=== PATIENT | male | born 1975 | race African-American/Black ===

== ENCOUNTER 2017-06-18 14:24 | Inpatient (IN) | payer OTHER ==
[~2017-06-18] VITALS: Ht 188 cm; Wt 105.9 kg
[2017-06-18] MEDS ORDERED: IV NORMAL SALINE 1000ML BAG 1,000 ML IV ONE (14:30)
[2017-06-18] MEDS ORDERED: IOHEXOL 300 MG/ML 75 ML VIAL IV ONE (14:30)
[2017-06-18] MEDS ORDERED: MORPHINE SULFATE 10 MG/ML VIAL. IV ONE ×2 (14:30→18:00)
[2017-06-18] MEDS ORDERED: ONDANSETRON PF 4 MG/2 ML VIAL. IV ONE (14:30)
[2017-06-18] MEDS ORDERED: LIDO:MAALOX:DONNATAL 1:1:1 15 ML SINGLE DOSE SWSW ONE (14:45)
[2017-06-18 15:14] LABS: BASO # 0.1 x10^3/uL (0.0-0.2); BASO % 1 % (0-3); EOS % 1 % (0-3); HEMATOCRIT 43.3 % (39.0-53.0); HEMOGLOBIN 14.8 g/dL (13.0-17.5); LYMPH # 1.6 x10^3/uL (1.0-4.8); LYMPH % 16 % (24-48); MEAN CORPUSCULAR HEMOGLOBIN 34 pg (25-35); MEAN CORPUSCULAR HGB CONC 34 g/dL (31-37); MEAN CORPUSCULAR VOLUME 99 fL (79-100); MONO % 5 % (0-9); NEUT % 77 % (31-73); PLATELET COUNT 248 x10^3/uL (140-400); RED CELL DISTRIBUTION WIDTH 13.7 % (11.5-14.5); WHITE BLOOD COUNT 10.2 x10^3/uL (4.0-11.0)
[2017-06-18 15:23] LABS: INR 1.2 (0.8-1.1); PROTHROMBIN TIME PATIENT 14.3 SEC (11.7-14.0)
--- NOTE | 2017-06-18 15:27 | PHYS DOC ---
Past Medical History Past Medical History: No Pertinent History Past Surgical History: No Surgical History Additional Information: 1 PPD Alcohol Use: Heavy Additional Information: DRINKS 2 TO 3 DRINKS A NIGHT Drug Use: Marijuana Adult General Chief Complaint Chief Complaint: ABDOMINAL PAIN HPI HPI Patient is a 41 year old male presenting to the emergency department for evaluation of 3 days worth of abdominal pain. The gastric and right upper quadrant and rates towards his right flank and associated with nonbloody nonbilious emesis. He denies any fevers but says that he has chills. No dysuria hematuria prior abdominal surgeries diarrhea or constipation. Patient says that he smokes cigarettes daily and drinks alcohol daily but denies using any drugs. He has not been taking anything for pain. He is uncomfortable appearing but nontoxic. Review of Systems Review of Systems Constitutional: Denies fever or chills [] Eyes: Denies change in visual acuity, redness, or eye pain [] HENT: Denies nasal congestion or sore throat [] Respiratory: Denies cough or shortness of breath [] Cardiovascular: No additional information not addressed in HPI [] GI: + abdominal pain, nausea, vomiting. No bloody stools or diarrhea [] : Denies dysuria or hematuria [] Musculoskeletal: Denies back pain or joint pain [] Integument: Denies rash or skin lesions [] Neurologic: Denies headache, focal weakness or sensory changes [] Current Medications Current Medications Current Medications Medications (Trade) Dose Ordered Sig/Nickie Start Time Stop Time Status Last Admin Dose Admin Fentanyl Citrate (Fentanyl 2ml Vial) 50 mcg PRN Q1HR PRN 06/18/17 18:00 06/19/17 17:59 06/18/17 17:59 50 MCG Iohexol (Omnipaque 300 Mg/ml) 75 ml 1X ONCE 06/18/17 14:30 06/18/17 14:38 DC 06/18/17 16:12 75 ML Morphine Sulfate 5 mg 1X ONCE 06/18/17 18:00 06/18/17 18:01 DC Multi-Ingredient Mouthwash/Gargle (Gi Cocktail Single Dose) 15 ml 1X ONCE 06/18/17 14:45 06/18/17 14:46 DC 06/18/17 14:58 15 ML Ondansetron HCl (Zofran) 4 mg PRN Q8HRS PRN 06/18/17 18:00 06/19/17 17:59 Sodium Chloride 1,000 ml @ 200 mls/hr Q5H 06/18/17 17:52 06/19/17 17:51 Allergies Allergies Allergies Coded Allergies Type Severity Reaction Last Updated Verified oxycodone Allergy Mild 06/18/17 Yes Physical Exam Physical Exam Constitutional: Well developed, well nourished, no acute distress, non-toxic appearance. [] HENT: Normocephalic, atraumatic, bilateral external ears normal, oropharynx moist, no oral exudates, nose normal. [] Eyes: PERRLA, EOMI, conjunctiva normal, no discharge. [] Neck: Normal range of motion, no tenderness, supple, no stridor. [] Cardiovascular:Heart rate regular rhythm, no murmur [] Lungs & Thorax: Bilateral breath sounds clear to auscultation [] Abdomen: Bowel sounds normal, soft, + epigastric and RUQ tenderness, no rebound or guarding, no masses, no pulsatile masses. [] Skin: Warm, dry, no erythema, no rash. [] Back: No tenderness, no CVA tenderness. [] Extremities: No tenderness, no cyanosis, no clubbing, ROM intact, no edema. [] Neurologic: Alert and oriented X 3, normal motor function, normal sensory function, no focal deficits noted. [] Current Patient Data Vital Signs Vital Signs Date Time Temp Pulse Resp B/P (MAP) Pulse Ox O2 Delivery O2 Flow Rate FiO2 06/18/17 17:59 22 100 Room Air 06/18/17 17:18 66 163/97 (119) 06/18/17 14:37 97.8 97.8 Lab Values Laboratory Tests Test 06/18/17 14:53 06/18/17 15:20 White Blood Count 10.2 x10^3/uL (4.0-11.0) Red Blood Count 4.40 x10^6/uL (4.30-5.70) Hemoglobin 14.8 g/dL (13.0-17.5) Hematocrit 43.3 % (39.0-53.0) Mean Corpuscular Volume 99 fL (79-100) Mean Corpuscular Hemoglobin 34 pg (25-35) Mean Corpuscular Hemoglobin Concent 34 g/dL (31-37) Red Cell Distribution Width 13.7 % (11.5-14.5) Platelet Count 248 x10^3/uL (140-400) Neutrophils (%) (Auto) 77 % (31-73) H Lymphocytes (%) (Auto) 16 % (24-48) L Monocytes (%) (Auto) 5 % (0-9) Eosinophils (%) (Auto) 1 % (0-3) Basophils (%) (Auto) 1 % (0-3) Neutrophils # (Auto) 7.8 x10^3uL (1.8-7.7) H Lymphocytes # (Auto) 1.6 x10^3/uL (1.0-4.8) Monocytes # (Auto) 0.5 x10^3/uL (0.0-1.1) Eosinophils # (Auto) 0.1 x10^3/uL (0.0-0.7) Basophils # (Auto) 0.1 x10^3/uL (0.0-0.2) Prothrombin Time 14.3 SEC (11.7-14.0) H Prothrombin Time INR 1.2 (0.8-1.1) H PTT 26 SEC (24-38) Sodium Level 141 mmol/L (136-145) Potassium Level 3.8 mmol/L (3.5-5.1) Chloride Level 103 mmol/L (98-107) Carbon Dioxide Level 24 mmol/L (21-32) Anion Gap 14 (6-14) Blood Urea Nitrogen 9 mg/dL (8-26) Creatinine 1.2 mg/dL (0.7-1.3) Estimated GFR (Cockcroft-Gault) 80.3 BUN/Creatinine Ratio 8 (6-20) Glucose Level 104 mg/dL (70-99) H Calcium Level 9.4 mg/dL (8.5-10.1) Magnesium Level 1.9 mg/dL (1.8-2.4) Total Bilirubin 0.9 mg/dL (0.2-1.0) Aspartate Amino Transferase (AST) 131 U/L (15-37) H Alanine Aminotransferase (ALT) 101 U/L (16-63) H Alkaline Phosphatase 100 U/L (46-116) Troponin I Quantitative < 0.017 ng/mL (0.000-0.055) Total Protein 7.8 g/dL (6.4-8.2) Albumin 4.0 g/dL (3.4-5.0) Albumin/Globulin Ratio 1.1 (1.0-1.7) Lipase 1985 U/L (73-393) H Ethyl Alcohol Level < 10 mg/dL (0-10) Urine Opiates Screen Pos (NEG) Urine Methadone Screen Neg (NEG) Urine Barbiturates Neg (NEG) Urine Phencyclidine Screen Neg (NEG) Urine Amphetamine/Methamphetamine Neg (NEG) Urine Benzodiazepines Screen Neg (NEG) Urine Cocaine Screen Pos (NEG) Urine Cannabinoids Screen Pos (NEG) Urine Ethyl Alcohol Neg (NEG) Laboratory Tests 06/18/17 14:53 Laboratory Tests 06/18/17 14:53 EKG EKG Normal sinus rhythm at 65 bpm with normal axis no obvious ST elevation or depression and normal T waves. Radiology/Procedures Radiology/Procedures CT scan of the abdomen and pelvis with contrast 06/18/2017 CLINICAL HISTORY: Epigastric abdominal pain since earlier today. TECHNIQUE: After the intravenous administration of 75 cc of Omnipaque 300, contiguous, 5 mm axial sections were obtained through the abdomen and pelvis. One or more of the following individualized dose reduction techniques were utilized for this study: 1. Automated exposure control. 2. Adjustment of the mA and/or kV according to patient size. 3. Use of iterative reconstruction technique. FINDINGS: Images through the lung bases demonstrate minimal dependent subsegmental atelectasis bilaterally. The liver is mildly enlarged measuring 25 cm in length. Decreased attenuation of the liver parenchyma is seen consistent with mild fatty infiltration. The spleen, adrenal glands and kidneys are within normal limits. The uncinate 8 process of the pancreas and head of the pancreas are poorly defined. Increased density is seen within the fat surrounding this portion of the pancreas. These findings are consistent with acute pancreatitis. Phlegmon is seen extending anteriorly, posteriorly and inferiorly. No pancreatic pseudocyst is seen. The gallbladder is well-distended. No free fluid or free air is seen within the abdomen. There is no evidence of bowel obstruction. The appendix is well-visualized and is within normal limits. Images through the pelvis demonstrate the urinary bladder distended with urine. Calcifications are seen within the pelvis consistent with phleboliths. No free fluid is seen. Minimal S-shaped curvature of the thoracolumbar spine is noted. IMPRESSION: Findings are seen consistent with acute pancreatitis. No pancreatic pseudocyst is seen. Electronically signed by: Sebastián Dan MD (06/18/2017 5:21 PM) [facility] DICTATED and SIGNED BY: SEBASTIÁN DAN MD DATE: 06/18/17 1716 Course & Med Decision Making Course & Med Decision Making Patient with epigastric and right upper quadrant pain that could be gastritis ulcer or pancreatitis or cholecystitis. We'll check labs treat symptoms and reassess. Patient's labs and CT are consistent with a pancreatitis that is likely alcohol- induced. Patient continues to have severe pain in the emergency department and given the degree of his lipase elevation and continued symptoms he'll be admitted for further observation and treatment. Dragon Disclaimer Dragon Disclaimer This electronic medical record was generated, in whole or in part, using a voice recognition dictation system. Departure Departure Impression: Primary Impression: Pancreatitis Additional Impressions: Transaminitis Drug abuse Alcohol abuse Disposition: ADMITTED INPATIENT Admitting Physician: Aaron Foster Condition: STABLE Problem Qualifiers Primary Impression: Pancreatitis Chronicity: acute Pancreatitis type: alcohol induced Acute pancreatitis complication: unspecified Qualified Codes: K85.20 - Alcohol induced acute pancreatitis without necrosis or infection JAVAN DAUGHERTY DO Jun 18, 2017 15:27
[2017-06-18 15:33] LABS: CALCIUM 9.4 mg/dL (8.5-10.1); CREATININE 1.2 mg/dL (0.7-1.3); GFR 80.3; POTASSIUM 3.8 mmol/L (3.5-5.1)
[2017-06-18 15:39] LABS: BARBITURATES NEG (NEG); BENZODIAZEPINES NEG (NEG); CANNABINOIDS POS (NEG); COCAINE POS (NEG); METHADONE NEG (NEG); OPIATES POS (NEG); PHENCYCLIDINE NEG (NEG)
[2017-06-18 15:57] LABS: ALBUMIN/GLOBULIN RATIO 1.1 (1.0-1.7); MAGNESIUM 1.9 mg/dL (1.8-2.4); TOTAL BILIRUBIN 0.9 mg/dL (0.2-1.0); TOTAL PROTEIN 7.8 g/dL (6.4-8.2)
--- NOTE | 2017-06-18 16:13 | EKG ---
[facility] [address] [place] [address] Test Date: 2017-06-18 Test Time: 15:22:56 Pat Name: JUAN MANUEL GONZALEZ Department: Room: Gender: M Phlebotomy Coordinator: : 1975 Requested By: JAVAN DAUGHERTY Order Number: [id number] Reading MD: Darwin Horta Measurements Intervals Bowen Rate: 63 P: 28 NM: 148 QRS: 41 QRSD: 86 T: 40 QT: 456 QTc: 470 Interpretive Statements SINUS RHYTHM PAC Electronically Signed On 06-25-2017 10:05:13 CDT by Darwin Horta
[2017-06-18] MEDS ORDERED: fentaNYL PF VIAL 100 MCG/2 ML VIAL IV ONE (16:30)
--- NOTE | 2017-06-18 17:24 | RAD ---
CT scan of the abdomen and pelvis with contrast 06/18/2017 CLINICAL HISTORY: Epigastric abdominal pain since earlier today. TECHNIQUE: After the intravenous administration of 75 cc of Omnipaque 300, contiguous, 5 mm axial sections were obtained through the abdomen and pelvis. One or more of the following individualized dose reduction techniques were utilized for this study: 1. Automated exposure control. 2. Adjustment of the mA and/or kV according to patient size. 3. Use of iterative reconstruction technique. FINDINGS: Images through the lung bases demonstrate minimal dependent subsegmental atelectasis bilaterally. The liver is mildly enlarged measuring 25 cm in length. Decreased attenuation of the liver parenchyma is seen consistent with mild fatty infiltration. The spleen, adrenal glands and kidneys are within normal limits. The uncinate 8 process of the pancreas and head of the pancreas are poorly defined. Increased density is seen within the fat surrounding this portion of the pancreas. These findings are consistent with acute pancreatitis. Phlegmon is seen extending anteriorly, posteriorly and inferiorly. No pancreatic pseudocyst is seen. The gallbladder is well-distended. No free fluid or free air is seen within the abdomen. There is no evidence of bowel obstruction. The appendix is well-visualized and is within normal limits. Images through the pelvis demonstrate the urinary bladder distended with urine. Calcifications are seen within the pelvis consistent with phleboliths. No free fluid is seen. Minimal S-shaped curvature of the thoracolumbar spine is noted. IMPRESSION: Findings are seen consistent with acute pancreatitis. No pancreatic pseudocyst is seen. Electronically signed by: Sebastián Winkler MD (06/18/2017 5:21 PM) [facility]
[2017-06-18] MEDS: fentaNYL PF VIAL 100 MCG/2 ML VIAL IV PRN ×4 (17:59→22:25)
[2017-06-18] MEDS ORDERED: ONDANSETRON PF 4 MG/2 ML VIAL. IV PRN (18:00)
[2017-06-18] MEDS: IV NORMAL SALINE 1000ML BAG 1,000 ML IV SCH (19:42)
[2017-06-18 19:45] VITALS: BP 140/93
--- NOTE | 2017-06-18 22:43 | RAD ---
ABDOMEN LTD dated 06/18/2017 7:48 PM. Comparison: CT dated same day. Clinical Indication: ruq epigastric pain
pt had ct abd pelv I sent over for comparison , evaluate for gallstones. Findings: Liver is of diffuse increased echogenicity, compatible with fatty infiltration. No apparent hepatic mass. Biliary tree normal in caliber. The common moderate measures 4 mm. Gallbladder normal in size and echogenicity. No gallbladder wall thickening or pericholecystic fluid. No gallstones are seen. Right kidney measures 11.3 cm in length. Left kidney was not imaged. Limited visualized portions of pancreas aorta and IVC unremarkable. No significant ascites. Pancreatic duct appears mildly dilated measuring about 3 mm IMPRESSION: 1. No acute sonographic abnormality. No evidence of cholelithiasis. 2. Fatty infiltration the liver. 3. Mild dilation of the pancreatic duct, nonspecific. Given the findings on recent CT this is likely related to acute pancreatitis. Electronically signed by: Juan Mccallum MD (06/18/2017 10:39 PM) [facility]
[2017-06-18 23:00] VITALS: BP 156/95
--- NOTE | 2017-06-18 23:01 | HP ---
ADMIT DATE: 06/18/2017 CHIEF COMPLAINT: Abdominal pain. HISTORY OF PRESENT ILLNESS: The patient is a pleasant middle-aged male who drinks 3-4 gins a day. He now presents with abdominal pain with pancreatitis. We did a CAT scan and indeed it is showing pancreatitis. I discussed the case with the ER physician who admitted the patient with consultation to GI. PAST MEDICAL HISTORY: Alcoholism. ALLERGIES: OXYCODONE. FAMILY HISTORY: Diabetes. SOCIAL HISTORY: He drinks. No drugs. MEDICATIONS: Reviewed. REVIEW OF SYSTEMS: GENERAL: No history of weight change, weakness or fevers. SKIN: No bruising, hair changes or rashes. EYES: No blurred, double or loss of vision. NOSE AND THROAT: No history of nosebleeds, hoarseness or sore throat. HEART: No history of palpitations, chest pain or shortness of breath on exertion. LUNGS: Denies cough, hemoptysis, wheezing or shortness of breath. GASTROINTESTINAL: He complains of abdominal pain. GENITOURINARY: No history of frequency, urgency, hesitancy or nocturia. NEUROLOGIC: Denies history of numbness, tingling, tremor or weakness. PSYCHIATRIC: No history of panic, anxiety or depression. ENDOCRINE: No history of heat or cold intolerance, polyuria or polydipsia. EXTREMITIES: Denies muscle weakness, joint pain, pain on walking or stiffness. PHYSICAL EXAMINATION: VITAL SIGNS: Temperature afebrile, pulse 70, respirations 18, blood pressure 153/84, O2 sat 98%. GENERAL: He is awake, alert, complaining of severe pain. HEART: Normal S1, S2. LUNGS: Clear. ABDOMEN: Soft. Decreased bowel sounds, tender. EXTREMITIES: No edema. SKIN: No rashes. PSYCHIATRIC: He is depressed. VASCULAR: Good capillary refill. ENDOCRINE: No thyromegaly. LYMPHATICS: No cervical nodes. HEMATOPOIETIC: No bruising. LABORATORY DATA: White count 10, hemoglobin 15, platelets 248. Electrolytes normal. AST is little high at 131, ALT a little high at 101. Drug screen positive for opiates, cocaine and cannabinoids. ASSESSMENT AND PLAN: Abdominal pain with drug screen positive for several different substances and CAT scan consistent with pancreatitis and probable alcoholism. The patient is being admitted. Consult Gastroenterology, p.r.n. morphine, IV fluids, n.p.o., check an ultrasound of the gallbladder. PROGNOSIS: Guarded. CRISTINAL Bobby RESTREPO DO DR: SUKHJINDER/keysha JOB#: [id number] / [id number]
[2017-06-19] MEDS: IV NORMAL SALINE 1000ML BAG 1,000 ML IV SCH ×5 (00:35→21:15)
[2017-06-19] MEDS: fentaNYL PF VIAL 100 MCG/2 ML VIAL IV PRN ×8 (00:36→21:14)
[2017-06-19 03:00] VITALS: BP 142/86
--- NOTE | 2017-06-19 04:10 | ACF ---
Admission Forms Criteria PANCREATITIS Clinical Indications for Admission to Inpatient Care (Place 'X' for any and all applicable criteria): Admission is indicated for 1 or more of the following (1)(2)(3)(4): [X]I. Acute pancreatitis[A] as indicated by 2 or MORE of the following: [X]a) Abdominal pain (eg, epigastric, left upper quadrant) [X]b) Serum amylase or serum lipase greater than 3 times the upper limit of normal [ ]c) Characteristic findings from abdominal imaging (eg, pancreatic inflammation, pancreatic necrosis, peripancreatic fluid collection)[B] [ ]II. Pancreatitis (acute or chronic ) requiring inpatient care as indicated by 1 or more of the following [ ]a) Inability to maintain oral hydration Hypoxemia [ ]b) Evidence of infection (eg, fever, peripancreatic abscess) [ ]c) Severe pain requiring acute inpatient management [ ]d) Hemodynamic instability [ ]e) Hypoxemia [ ]f) Acute renal failure [ ]g) Severe electrolyte abnormalities Extended stay beyond goal length of stay may be needed for (1)(11) [ ]a) Severe acute pancreatitis (10)(19) [ ]b) Persistent symptoms, ascites, or pleural effusion [ ]c) Abdominal compartment syndrome (10) [ ]d) Late complications [ ]e) Gallstones in gallbladder [ ]f) Acute renal failure (27) The original [facility] content created by [employer] has been revised. The portions of the content which have been revised are identified through the use of italic text or in bold,and [facility] has neither reviewed nor approved the modified material.All other unmodified content is copyright [facility] [employer]. Please see references footnoted in the original [facility] edition 2016 Admission Criteria Met?: Yes DORI FINK Jun 19, 2017 04:10
[2017-06-19 04:35] LABS: BASO # 0.1 x10^3/uL (0.0-0.2); BASO % 0 % (0-3); EOS % 1 % (0-3); HEMATOCRIT 42.2 % (39.0-53.0); HEMOGLOBIN 14.1 g/dL (13.0-17.5); LYMPH # 0.9 x10^3/uL (1.0-4.8); LYMPH % 8 % (24-48); MEAN CORPUSCULAR HEMOGLOBIN 34 pg (25-35); MEAN CORPUSCULAR HGB CONC 34 g/dL (31-37); MEAN CORPUSCULAR VOLUME 100 fL (79-100); MONO % 5 % (0-9); NEUT % 86 % (31-73); PLATELET COUNT 226 x10^3/uL (140-400); RED BLOOD COUNT 4.21 x10^6/uL (4.30-5.70); RED CELL DISTRIBUTION WIDTH 13.7 % (11.5-14.5)
[2017-06-19 04:55] LABS: ALBUMIN 3.3 g/dL (3.4-5.0); ALBUMIN/GLOBULIN RATIO 0.9 (1.0-1.7); GFR 99.2; POTASSIUM 3.8 mmol/L (3.5-5.1); TOTAL BILIRUBIN 0.9 mg/dL (0.2-1.0); TOTAL PROTEIN 7.1 g/dL (6.4-8.2)
[2017-06-19 07:00] VITALS: BP 159/105
--- NOTE | 2017-06-19 09:07 | PDOC2 ---
GI CONSULT Reason For Consult: Pancreatitis HPI: HPI: 41 y/o male admitted through the ER. Reports two days of abdominal pain " across the middle" w/ radiation to back. N/v yesterday, decreased PO intake. Labs significant for WBC 10.2 to 12, normal bili, AST 131 to 68, ALT 01 to 68, lipase 1895 to 3428. Tox screen +cocaine +cannabinoids +opiates; he denies drug use except for marijuana. Abd US w/ fatty liver and mildly dilated pancreatic duct, no gallbladder abnormality/cholelithiasis. CT c/w acute pancreatitis w/ phlegmon. Drinks 2-3 "regular sized" vodkas w/ cranberry juice daily. No previous pancreas, liver, or gallbladder history. No previous EGD or colonoscopy. Denies reflux/heartburn, dysphagia, diarrhea, constipation ( although hasn't stooled in about 2 days w/ decreased PO intake), hematemesis, melena, hematochezia, and weight loss. No NSAID use. Has a tray of clear liquids, might try a few sips but wants pain medication first. PMH: PMH: denies FH: Family History: No pertinent hx (denies GI cancers, gallbladder, liver, and pancreatic disease) Social History: Smoke: <1 pack per day ALCOHOL: other (reports 2-3 "regular" sized vodka cranberry drinks daily) Drugs: Cocaine, Marijuana ROS: GEN: Denies fevers, chills, sweats HEENT: Denies blurred vision, sore throat CV: Denies chest pain RESP: Denies shortness of air, cough GI: Per HPI : Denies hematuria, dysuria ENDO: Denies weight changes NEURO: Denies confusion, dizziness MSK: Denies weakness, joint pain/swelling SKIN: Denies jaundice, pruritus Vitals: Vitals: Vital Signs Date Time Temp Pulse Resp B/P (MAP) Pulse Ox O2 Delivery O2 Flow Rate FiO2 06/19/17 07:00 98.1 62 18 159/105 (123) 99 Room Air 98.1 Labs: Labs: Laboratory Tests Test 06/18/17 14:53 06/18/17 15:20 06/19/17 04:24 White Blood Count 10.2 x10^3/uL (4.0-11.0) 12.0 x10^3/uL (4.0-11.0) Red Blood Count 4.40 x10^6/uL (4.30-5.70) 4.21 x10^6/uL (4.30-5.70) Hemoglobin 14.8 g/dL (13.0-17.5) 14.1 g/dL (13.0-17.5) Hematocrit 43.3 % (39.0-53.0) 42.2 % (39.0-53.0) Mean Corpuscular Volume 99 fL (79-100) 100 fL (79-100) Mean Corpuscular Hemoglobin 34 pg (25-35) 34 pg (25-35) Mean Corpuscular Hemoglobin Concent 34 g/dL (31-37) 34 g/dL (31-37) Red Cell Distribution Width 13.7 % (11.5-14.5) 13.7 % (11.5-14.5) Platelet Count 248 x10^3/uL (140-400) 226 x10^3/uL (140-400) Neutrophils (%) (Auto) 77 % (31-73) 86 % (31-73) Lymphocytes (%) (Auto) 16 % (24-48) 8 % (24-48) Monocytes (%) (Auto) 5 % (0-9) 5 % (0-9) Eosinophils (%) (Auto) 1 % (0-3) 1 % (0-3) Basophils (%) (Auto) 1 % (0-3) 0 % (0-3) Neutrophils # (Auto) 7.8 x10^3uL (1.8-7.7) 10.3 x10^3uL (1.8-7.7) Lymphocytes # (Auto) 1.6 x10^3/uL (1.0-4.8) 0.9 x10^3/uL (1.0-4.8) Monocytes # (Auto) 0.5 x10^3/uL (0.0-1.1) 0.6 x10^3/uL (0.0-1.1) Eosinophils # (Auto) 0.1 x10^3/uL (0.0-0.7) 0.1 x10^3/uL (0.0-0.7) Basophils # (Auto) 0.1 x10^3/uL (0.0-0.2) 0.1 x10^3/uL (0.0-0.2) Prothrombin Time 14.3 SEC (11.7-14.0) Prothromb Time International Ratio 1.2 (0.8-1.1) Activated Partial Thromboplast Time 26 SEC (24-38) Sodium Level 141 mmol/L (136-145) 139 mmol/L (136-145) Potassium Level 3.8 mmol/L (3.5-5.1) 3.8 mmol/L (3.5-5.1) Chloride Level 103 mmol/L (98-107) 105 mmol/L (98-107) Carbon Dioxide Level 24 mmol/L (21-32) 23 mmol/L (21-32) Anion Gap 14 (6-14) 11 (6-14) Blood Urea Nitrogen 9 mg/dL (8-26) 7 mg/dL (8-26) Creatinine 1.2 mg/dL (0.7-1.3) 1.0 mg/dL (0.7-1.3) Estimated GFR (Cockcroft-Gault) 80.3 99.2 BUN/Creatinine Ratio 8 (6-20) 7 (6-20) Glucose Level 104 mg/dL (70-99) 110 mg/dL (70-99) Calcium Level 9.4 mg/dL (8.5-10.1) 9.0 mg/dL (8.5-10.1) Magnesium Level 1.9 mg/dL (1.8-2.4) Total Bilirubin 0.9 mg/dL (0.2-1.0) 0.9 mg/dL (0.2-1.0) Aspartate Amino Transf (AST/SGOT) 131 U/L (15-37) 68 U/L (15-37) Alanine Aminotransferase (ALT/SGPT) 101 U/L (16-63) 68 U/L (16-63) Alkaline Phosphatase 100 U/L (46-116) 82 U/L (46-116) Troponin I Quantitative < 0.017 ng/mL (0.000-0.055) Total Protein 7.8 g/dL (6.4-8.2) 7.1 g/dL (6.4-8.2) Albumin 4.0 g/dL (3.4-5.0) 3.3 g/dL (3.4-5.0) Albumin/Globulin Ratio 1.1 (1.0-1.7) 0.9 (1.0-1.7) Lipase 1985 U/L (73-393) 3428 U/L (73-393) Ethyl Alcohol Level < 10 mg/dL (0-10) Urine Opiates Screen Pos (NEG) Urine Methadone Screen Neg (NEG) Urine Barbiturates Neg (NEG) Urine Phencyclidine Screen Neg (NEG) Urine Amphetamine/Methamphetamine Neg (NEG) Urine Benzodiazepines Screen Neg (NEG) Urine Cocaine Screen Pos (NEG) Urine Cannabinoids Screen Pos (NEG) Urine Ethyl Alcohol Neg (NEG) Allergies: Coded Allergies: oxycodone (Verified Allergy, Mild, 06/18/17) Medications: Current Medications Medications (Trade) Dose Ordered Sig/Nickie Route PRN Reason Start Time Stop Time Status Last Admin Dose Admin Sodium Chloride 1,000 ml @ 1,000 mls/hr 1X ONCE IV 06/18/17 14:30 06/18/17 15:29 DC 06/18/17 14:53 Ondansetron HCl (Zofran) 8 mg 1X ONCE IV 06/18/17 14:30 06/18/17 14:38 DC 06/18/17 14:57 Morphine Sulfate 5 mg 1X ONCE IV 06/18/17 14:30 06/18/17 14:38 DC 06/18/17 14:58 Iohexol (Omnipaque 300 Mg/ml) 75 ml 1X ONCE IV 06/18/17 14:30 06/18/17 14:38 DC 06/18/17 16:12 Multi-Ingredient Mouthwash/Gargle (Gi Cocktail Single Dose) 15 ml 1X ONCE SWSW 06/18/17 14:45 06/18/17 14:46 DC 06/18/17 14:58 Fentanyl Citrate (Fentanyl 2ml Vial) 100 mcg 1X ONCE IV 06/18/17 16:30 06/18/17 16:31 DC 06/18/17 16:23 Morphine Sulfate 5 mg 1X ONCE IV 06/18/17 18:00 06/18/17 18:01 DC 06/18/17 18:24 Fentanyl Citrate (Fentanyl 2ml Vial) 50 mcg PRN Q1HR PRN IV PAIN 06/18/17 18:00 06/18/17 21:58 DC 06/18/17 20:51 Sodium Chloride 1,000 ml @ 200 mls/hr Q5H IV 06/18/17 17:52 06/19/17 17:51 06/19/17 05:29 Fentanyl Citrate (Fentanyl 2ml Vial) 100 mcg PRN Q1HR PRN IV PAIN 06/18/17 22:00 06/19/17 02:36 DC 06/19/17 00:36 Fentanyl Citrate (Fentanyl 2ml Vial) 100 mcg PRN Q2HRS PRN IV PAIN 06/19/17 02:45 06/19/17 05:39 Imaging: Imaging: RUQ US IMPRESSION: 1. No acute sonographic abnormality. No evidence of cholelithiasis. 2. Fatty infiltration the liver. 3. Mild dilation of the pancreatic duct, nonspecific. Given the findings on recent CT this is likely related to acute pancreatitis. CT A/P IMPRESSION: Findings are seen consistent with acute pancreatitis. No pancreatic pseudocyst is seen. PE: GEN: NAD HEENT: Atraumatic, PERRL LUNGS: CTAB anteriorly HEART: RRR ABD: NABS, S/ND, epigastric, RUQ > LUQ EXTREMITY: No edema SKIN: No rashes, no jaundice NEURO/PSYCH: A & O 3 A/P: A/P: Pancreatitis w/ phlegmon -likely alcohol-related, lipase worse today w/ improved transaminases Upper abd pain, n/v -2/2 above Leukocytosis Substance abuse -- W/ phlegmon, worsening lipase, some elevation in WBC, and ongoing pain, will change to NPO w/ ice chips. TEVIN DUNCAN Jun 19, 2017 09:07
[2017-06-19 11:23] VITALS: BP 136/89
--- NOTE | 2017-06-19 12:37 | PDOC ---
PROGRESS NOTES Chief Complaint Chief Complaint Abdominal pain Acute pancreatitis PMH: Alcoholism History of Present Illness History of Present Illness Pt laying in bed, discussed toxicology, positive for opiates, cocaine, cannabinoids, pt denies recent drug use. Denies withdrawal symptoms. Says pain is better controlled, just received medication. Lipase 3428 today, on 06/18/17 was [address] abdomen/pelvis: Phlegmon is seen extending anteriorly, posteriorly and inferiorly; Findings are seen consistent with acute pancreatitis. No pancreatic pseudocyst is seen US abdomen: IMPRESSION: 1. No acute sonographic abnormality. No evidence of cholelithiasis. 2. Fatty infiltration the liver. 3. Mild dilation of the pancreatic duct, nonspecific. Given the findings on recent CT this is likely related to acute pancreatitis. GI consulted: changing pt to NPO w/ ice chips Vitals Vitals Vital Signs Date Time Temp Pulse Resp B/P (MAP) Pulse Ox O2 Delivery O2 Flow Rate FiO2 06/19/17 11:23 98.2 61 18 136/89 (105) 98 Room Air 98.2 Physical Exam General: Alert, Oriented X3, Cooperative Heart: Regular rate, No murmurs Lungs: Clear, Other (no crackles, no wheezes) Abdomen: Normal bowel sounds, Soft Extremities: No clubbing, No cyanosis Skin: No rashes, No breakdown Labs LABS Laboratory Tests Test 06/18/17 14:53 06/18/17 15:20 06/19/17 04:24 White Blood Count 10.2 x10^3/uL (4.0-11.0) 12.0 x10^3/uL (4.0-11.0) Red Blood Count 4.40 x10^6/uL (4.30-5.70) 4.21 x10^6/uL (4.30-5.70) Hemoglobin 14.8 g/dL (13.0-17.5) 14.1 g/dL (13.0-17.5) Hematocrit 43.3 % (39.0-53.0) 42.2 % (39.0-53.0) Mean Corpuscular Volume 99 fL (79-100) 100 fL (79-100) Mean Corpuscular Hemoglobin 34 pg (25-35) 34 pg (25-35) Mean Corpuscular Hemoglobin Concent 34 g/dL (31-37) 34 g/dL (31-37) Red Cell Distribution Width 13.7 % (11.5-14.5) 13.7 % (11.5-14.5) Platelet Count 248 x10^3/uL (140-400) 226 x10^3/uL (140-400) Neutrophils (%) (Auto) 77 % (31-73) 86 % (31-73) Lymphocytes (%) (Auto) 16 % (24-48) 8 % (24-48) Monocytes (%) (Auto) 5 % (0-9) 5 % (0-9) Eosinophils (%) (Auto) 1 % (0-3) 1 % (0-3) Basophils (%) (Auto) 1 % (0-3) 0 % (0-3) Neutrophils # (Auto) 7.8 x10^3uL (1.8-7.7) 10.3 x10^3uL (1.8-7.7) Lymphocytes # (Auto) 1.6 x10^3/uL (1.0-4.8) 0.9 x10^3/uL (1.0-4.8) Monocytes # (Auto) 0.5 x10^3/uL (0.0-1.1) 0.6 x10^3/uL (0.0-1.1) Eosinophils # (Auto) 0.1 x10^3/uL (0.0-0.7) 0.1 x10^3/uL (0.0-0.7) Basophils # (Auto) 0.1 x10^3/uL (0.0-0.2) 0.1 x10^3/uL (0.0-0.2) Prothrombin Time 14.3 SEC (11.7-14.0) Prothromb Time International Ratio 1.2 (0.8-1.1) Activated Partial Thromboplast Time 26 SEC (24-38) Sodium Level 141 mmol/L (136-145) 139 mmol/L (136-145) Potassium Level 3.8 mmol/L (3.5-5.1) 3.8 mmol/L (3.5-5.1) Chloride Level 103 mmol/L (98-107) 105 mmol/L (98-107) Carbon Dioxide Level 24 mmol/L (21-32) 23 mmol/L (21-32) Anion Gap 14 (6-14) 11 (6-14) Blood Urea Nitrogen 9 mg/dL (8-26) 7 mg/dL (8-26) Creatinine 1.2 mg/dL (0.7-1.3) 1.0 mg/dL (0.7-1.3) Estimated GFR (Cockcroft-Gault) 80.3 99.2 BUN/Creatinine Ratio 8 (6-20) 7 (6-20) Glucose Level 104 mg/dL (70-99) 110 mg/dL (70-99) Calcium Level 9.4 mg/dL (8.5-10.1) 9.0 mg/dL (8.5-10.1) Magnesium Level 1.9 mg/dL (1.8-2.4) Total Bilirubin 0.9 mg/dL (0.2-1.0) 0.9 mg/dL (0.2-1.0) Aspartate Amino Transf (AST/SGOT) 131 U/L (15-37) 68 U/L (15-37) Alanine Aminotransferase (ALT/SGPT) 101 U/L (16-63) 68 U/L (16-63) Alkaline Phosphatase 100 U/L (46-116) 82 U/L (46-116) Troponin I Quantitative < 0.017 ng/mL (0.000-0.055) Total Protein 7.8 g/dL (6.4-8.2) 7.1 g/dL (6.4-8.2) Albumin 4.0 g/dL (3.4-5.0) 3.3 g/dL (3.4-5.0) Albumin/Globulin Ratio 1.1 (1.0-1.7) 0.9 (1.0-1.7) Lipase 1985 U/L (73-393) 3428 U/L (73-393) Ethyl Alcohol Level < 10 mg/dL (0-10) Urine Opiates Screen Pos (NEG) Urine Methadone Screen Neg (NEG) Urine Barbiturates Neg (NEG) Urine Phencyclidine Screen Neg (NEG) Urine Amphetamine/Methamphetamine Neg (NEG) Urine Benzodiazepines Screen Neg (NEG) Urine Cocaine Screen Pos (NEG) Urine Cannabinoids Screen Pos (NEG) Urine Ethyl Alcohol Neg (NEG) Review of Systems Review of Systems abdominal pain no fevers Assessment and Plan Assessmemt and Plan Problems Medical Problems: (1) Alcohol abuse Status: Acute (2) Drug abuse Status: Acute (3) Transaminitis Status: Acute Pancreatitis w/ phlegmon Leukocytosis Substance abuse Mild malnutrition - albumin 3.3 1. GI consulted: worsening lipase, elevation of WBC and ongoing pain will change to NPO w/ ice chips 2. CIWA 3. Follow Lipase levels daily 4. Recheck CBC and BMP in am 5. PT/OT 6. Appreciate subspecialty input Problems: Comment Review of Relevant I have reviewed the following items laure (where applicable) has been applied. Labs Laboratory Tests Test 06/18/17 14:53 06/18/17 15:20 06/19/17 04:24 White Blood Count 10.2 x10^3/uL (4.0-11.0) 12.0 x10^3/uL (4.0-11.0) Red Blood Count 4.40 x10^6/uL (4.30-5.70) 4.21 x10^6/uL (4.30-5.70) Hemoglobin 14.8 g/dL (13.0-17.5) 14.1 g/dL (13.0-17.5) Hematocrit 43.3 % (39.0-53.0) 42.2 % (39.0-53.0) Mean Corpuscular Volume 99 fL (79-100) 100 fL (79-100) Mean Corpuscular Hemoglobin 34 pg (25-35) 34 pg (25-35) Mean Corpuscular Hemoglobin Concent 34 g/dL (31-37) 34 g/dL (31-37) Red Cell Distribution Width 13.7 % (11.5-14.5) 13.7 % (11.5-14.5) Platelet Count 248 x10^3/uL (140-400) 226 x10^3/uL (140-400) Neutrophils (%) (Auto) 77 % (31-73) 86 % (31-73) Lymphocytes (%) (Auto) 16 % (24-48) 8 % (24-48) Monocytes (%) (Auto) 5 % (0-9) 5 % (0-9) Eosinophils (%) (Auto) 1 % (0-3) 1 % (0-3) Basophils (%) (Auto) 1 % (0-3) 0 % (0-3) Neutrophils # (Auto) 7.8 x10^3uL (1.8-7.7) 10.3 x10^3uL (1.8-7.7) Lymphocytes # (Auto) 1.6 x10^3/uL (1.0-4.8) 0.9 x10^3/uL (1.0-4.8) Monocytes # (Auto) 0.5 x10^3/uL (0.0-1.1) 0.6 x10^3/uL (0.0-1.1) Eosinophils # (Auto) 0.1 x10^3/uL (0.0-0.7) 0.1 x10^3/uL (0.0-0.7) Basophils # (Auto) 0.1 x10^3/uL (0.0-0.2) 0.1 x10^3/uL (0.0-0.2) Prothrombin Time 14.3 SEC (11.7-14.0) Prothromb Time International Ratio 1.2 (0.8-1.1) Activated Partial Thromboplast Time 26 SEC (24-38) Sodium Level 141 mmol/L (136-145) 139 mmol/L (136-145) Potassium Level 3.8 mmol/L (3.5-5.1) 3.8 mmol/L (3.5-5.1) Chloride Level 103 mmol/L (98-107) 105 mmol/L (98-107) Carbon Dioxide Level 24 mmol/L (21-32) 23 mmol/L (21-32) Anion Gap 14 (6-14) 11 (6-14) Blood Urea Nitrogen 9 mg/dL (8-26) 7 mg/dL (8-26) Creatinine 1.2 mg/dL (0.7-1.3) 1.0 mg/dL (0.7-1.3) Estimated GFR (Cockcroft-Gault) 80.3 99.2 BUN/Creatinine Ratio 8 (6-20) 7 (6-20) Glucose Level 104 mg/dL (70-99) 110 mg/dL (70-99) Calcium Level 9.4 mg/dL (8.5-10.1) 9.0 mg/dL (8.5-10.1) Magnesium Level 1.9 mg/dL (1.8-2.4) Total Bilirubin 0.9 mg/dL (0.2-1.0) 0.9 mg/dL (0.2-1.0) Aspartate Amino Transf (AST/SGOT) 131 U/L (15-37) 68 U/L (15-37) Alanine Aminotransferase (ALT/SGPT) 101 U/L (16-63) 68 U/L (16-63) Alkaline Phosphatase 100 U/L (46-116) 82 U/L (46-116) Troponin I Quantitative < 0.017 ng/mL (0.000-0.055) Total Protein 7.8 g/dL (6.4-8.2) 7.1 g/dL (6.4-8.2) Albumin 4.0 g/dL (3.4-5.0) 3.3 g/dL (3.4-5.0) Albumin/Globulin Ratio 1.1 (1.0-1.7) 0.9 (1.0-1.7) Lipase 1985 U/L (73-393) 3428 U/L (73-393) Ethyl Alcohol Level < 10 mg/dL (0-10) Urine Opiates Screen Pos (NEG) Urine Methadone Screen Neg (NEG) Urine Barbiturates Neg (NEG) Urine Phencyclidine Screen Neg (NEG) Urine Amphetamine/Methamphetamine Neg (NEG) Urine Benzodiazepines Screen Neg (NEG) Urine Cocaine Screen Pos (NEG) Urine Cannabinoids Screen Pos (NEG) Urine Ethyl Alcohol Neg (NEG) Laboratory Tests Test 06/18/17 14:53 06/18/17 15:20 06/19/17 04:24 White Blood Count 10.2 x10^3/uL (4.0-11.0) 12.0 x10^3/uL (4.0-11.0) Red Blood Count 4.40 x10^6/uL (4.30-5.70) 4.21 x10^6/uL (4.30-5.70) Hemoglobin 14.8 g/dL (13.0-17.5) 14.1 g/dL (13.0-17.5) Hematocrit 43.3 % (39.0-53.0) 42.2 % (39.0-53.0) Mean Corpuscular Volume 99 fL (79-100) 100 fL (79-100) Mean Corpuscular Hemoglobin 34 pg (25-35) 34 pg (25-35) Mean Corpuscular Hemoglobin Concent 34 g/dL (31-37) 34 g/dL (31-37) Red Cell Distribution Width 13.7 % (11.5-14.5) 13.7 % (11.5-14.5) Platelet Count 248 x10^3/uL (140-400) 226 x10^3/uL (140-400) Neutrophils (%) (Auto) 77 % (31-73) 86 % (31-73) Lymphocytes (%) (Auto) 16 % (24-48) 8 % (24-48) Monocytes (%) (Auto) 5 % (0-9) 5 % (0-9) Eosinophils (%) (Auto) 1 % (0-3) 1 % (0-3) Basophils (%) (Auto) 1 % (0-3) 0 % (0-3) Neutrophils # (Auto) 7.8 x10^3uL (1.8-7.7) 10.3 x10^3uL (1.8-7.7) Lymphocytes # (Auto) 1.6 x10^3/uL (1.0-4.8) 0.9 x10^3/uL (1.0-4.8) Monocytes # (Auto) 0.5 x10^3/uL (0.0-1.1) 0.6 x10^3/uL (0.0-1.1) Eosinophils # (Auto) 0.1 x10^3/uL (0.0-0.7) 0.1 x10^3/uL (0.0-0.7) Basophils # (Auto) 0.1 x10^3/uL (0.0-0.2) 0.1 x10^3/uL (0.0-0.2) Prothrombin Time 14.3 SEC (11.7-14.0) Prothromb Time International Ratio 1.2 (0.8-1.1) Activated Partial Thromboplast Time 26 SEC (24-38) Sodium Level 141 mmol/L (136-145) 139 mmol/L (136-145) Potassium Level 3.8 mmol/L (3.5-5.1) 3.8 mmol/L (3.5-5.1) Chloride Level 103 mmol/L (98-107) 105 mmol/L (98-107) Carbon Dioxide Level 24 mmol/L (21-32) 23 mmol/L (21-32) Anion Gap 14 (6-14) 11 (6-14) Blood Urea Nitrogen 9 mg/dL (8-26) 7 mg/dL (8-26) Creatinine 1.2 mg/dL (0.7-1.3) 1.0 mg/dL (0.7-1.3) Estimated GFR (Cockcroft-Gault) 80.3 99.2 BUN/Creatinine Ratio 8 (6-20) 7 (6-20) Glucose Level 104 mg/dL (70-99) 110 mg/dL (70-99) Calcium Level 9.4 mg/dL (8.5-10.1) 9.0 mg/dL (8.5-10.1) Magnesium Level 1.9 mg/dL (1.8-2.4) Total Bilirubin 0.9 mg/dL (0.2-1.0) 0.9 mg/dL (0.2-1.0) Aspartate Amino Transf (AST/SGOT) 131 U/L (15-37) 68 U/L (15-37) Alanine Aminotransferase (ALT/SGPT) 101 U/L (16-63) 68 U/L (16-63) Alkaline Phosphatase 100 U/L (46-116) 82 U/L (46-116) Troponin I Quantitative < 0.017 ng/mL (0.000-0.055) Total Protein 7.8 g/dL (6.4-8.2) 7.1 g/dL (6.4-8.2) Albumin 4.0 g/dL (3.4-5.0) 3.3 g/dL (3.4-5.0) Albumin/Globulin Ratio 1.1 (1.0-1.7) 0.9 (1.0-1.7) Lipase 1985 U/L (73-393) 3428 U/L (73-393) Ethyl Alcohol Level < 10 mg/dL (0-10) Urine Opiates Screen Pos (NEG) Urine Methadone Screen Neg (NEG) Urine Barbiturates Neg (NEG) Urine Phencyclidine Screen Neg (NEG) Urine Amphetamine/Methamphetamine Neg (NEG) Urine Benzodiazepines Screen Neg (NEG) Urine Cocaine Screen Pos (NEG) Urine Cannabinoids Screen Pos (NEG) Urine Ethyl Alcohol Neg (NEG) Medications Current Medications Sodium Chloride 1,000 ml @ 1,000 mls/hr 1X ONCE IV Last administered on 14:53; Start 06/18/17 at 14:30; Stop 06/18/17 at 15:29; Status DC Ondansetron HCl (Zofran) 8 mg 1X ONCE IV Last administered on 06/18/17 14:57 ; Start 06/18/17 at 14:30; Stop 06/18/17 at 14:38; Status DC Morphine Sulfate 5 mg 1X ONCE IV Last administered on 06/18/17 14:58; Start 06/18/17 at 14:30; Stop 06/18/17 at 14:38; Status DC Iohexol (Omnipaque 300 Mg/ml) 75 ml 1X ONCE IV Last administered on 06/18/17 16:12; Start 06/18/17 at 14:30; Stop 06/18/17 at 14:38; Status DC Multi-Ingredient Mouthwash/Gargle (Gi Cocktail Single Dose) 15 ml 1X ONCE SWSW Last administered on 06/18/17 14:58; Start 06/18/17 at 14:45; Stop 06/18/17 at 14:46; Status DC Fentanyl Citrate (Fentanyl 2ml Vial) 100 mcg 1X ONCE IV Last administered on 16:23; Start 06/18/17 at 16:30; Stop 06/18/17 at 16:31; Status DC Morphine Sulfate 5 mg 1X ONCE IV Last administered on 06/18/17 18:24; Start 06/18/17 at 18:00; Stop 06/18/17 at 18:01; Status DC Ondansetron HCl (Zofran) 4 mg PRN Q8HRS PRN IV NAUSEA/VOMITING; Start 06/18/17 at 18:00; Stop 06/19/17 at 17:59 Fentanyl Citrate (Fentanyl 2ml Vial) 50 mcg PRN Q1HR PRN IV PAIN Last administered on 06/18/17 20:51; Start 06/18/17 at 18:00; Stop 06/18/17 at 21:58 ; Status DC Sodium Chloride 1,000 ml @ 200 mls/hr Q5H IV Last administered on 06/19/17 11 :16; Start 06/18/17 at 17:52; Stop 06/19/17 at 17:51 Fentanyl Citrate (Fentanyl 2ml Vial) 100 mcg PRN Q1HR PRN IV PAIN Last administered on 06/19/17 00:36; Start 06/18/17 at 22:00; Stop 06/19/17 at 02:36 ; Status DC Fentanyl Citrate (Fentanyl 2ml Vial) 100 mcg PRN Q2HRS PRN IV PAIN Last administered on 06/19/17 09:57; Start 06/19/17 at 02:45 Active Scripts Active Reported No Known Medications Prior To Admisstion (Info) Each 1 Each Vitals/I & O Vital Sign - Last 24 Hours 06/18/17 06/18/17 06/18/17 06/18/17 14:37 14:58 15:06 15:28 Temp 97.8 97.8 Pulse 61 70 Resp 24 16 16 18 B/P (MAP) 166/106 (126) 154/95 (114) Pulse Ox 100 100 O2 Delivery Room Air Room Air Room Air 06/18/17 06/18/17 06/18/17 06/18/17 15:36 16:23 16:48 16:53 Pulse 64 64 Resp 11 16 12 16 B/P (MAP) 170/102 (124) 150/100 (117) Pulse Ox 99 100 95 O2 Delivery Room Air Room Air Room Air 06/18/17 06/18/17 06/18/17 06/18/17 17:18 17:48 17:59 18:18 Pulse 66 72 74 Resp 13 21 22 23 B/P (MAP) 163/97 (119) 164/82 (109) 134/72 (92) Pulse Ox 97 99 100 99 O2 Delivery Room Air Room Air Room Air Room Air 06/18/17 06/18/17 06/18/17 06/18/17 18:24 18:48 18:54 19:02 Pulse 64 70 Resp 22 16 20 18 B/P (MAP) 149/97 (114) 153/84 (107) Pulse Ox 99 100 96 98 O2 Delivery Room Air Room Air Room Air Room Air 06/18/17 06/18/17 06/18/17 06/18/17 19:41 19:45 20:51 21:21 Temp 98.2 98.2 Pulse 53 Resp 20 18 20 18 B/P (MAP) 140/93 (109) Pulse Ox 98 98 98 98 O2 Delivery Room Air Room Air Room Air Room Air 06/18/17 06/18/17 06/19/17 06/19/17 22:25 23:00 00:36 03:00 Temp 98.0 98.0 Pulse 63 60 Resp 20 18 18 18 B/P (MAP) 156/95 (115) 142/86 (104) Pulse Ox 98 95 98 97 O2 Delivery Room Air Room Air Room Air Room Air 06/19/17 06/19/17 06/19/17 06/19/17 03:40 05:39 07:00 09:57 Temp 98.1 98.1 Pulse 62 Resp 20 20 18 20 B/P (MAP) 159/105 (123) Pulse Ox 98 98 99 O2 Delivery Room Air Room Air Room Air Room Air 06/19/17 06/19/17 10:27 11:23 Temp 98.2 98.2 Pulse 61 Resp 18 18 B/P (MAP) 136/89 (105) Pulse Ox 99 98 O2 Delivery Room Air Room Air Intake and Output 06/19/17 06/19/17 06/20/17 15:00 23:00 07:00 Intake Total 300 ml Balance 300 ml LUISA RESTREPO III DO Jun 19, 2017 12:37
[2017-06-19 14:45] VITALS: BP 153/96
[2017-06-19 19:00] VITALS: BP 166/97
[2017-06-19 23:02] VITALS: BP 138/39
[2017-06-20] MEDS: IV NORMAL SALINE 1000ML BAG 1,000 ML IV SCH ×5 (02:03→20:34)
[2017-06-20] MEDS: fentaNYL PF VIAL 100 MCG/2 ML VIAL IV PRN ×3 (02:04→20:35)
[2017-06-20 03:00] VITALS: BP 132/88
[2017-06-20 05:58] LABS: BASO % 0 % (0-3); EOS % 1 % (0-3); HEMATOCRIT 38.8 % (39.0-53.0); HEMOGLOBIN 13.4 g/dL (13.0-17.5); LYMPH # 1.5 x10^3/uL (1.0-4.8); LYMPH % 12 % (24-48); MEAN CORPUSCULAR HEMOGLOBIN 34 pg (25-35); MEAN CORPUSCULAR HGB CONC 35 g/dL (31-37); MEAN CORPUSCULAR VOLUME 99 fL (79-100); MONO % 5 % (0-9); NEUT % 81 % (31-73); PLATELET COUNT 212 x10^3/uL (140-400); RED BLOOD COUNT 3.94 x10^6/uL (4.30-5.70); RED CELL DISTRIBUTION WIDTH 13.7 % (11.5-14.5); WHITE BLOOD COUNT 11.7 x10^3/uL (4.0-11.0)
[2017-06-20 06:21] LABS: CALCIUM 8.8 mg/dL (8.5-10.1); GFR 99.2; POTASSIUM 3.9 mmol/L (3.5-5.1)
[2017-06-20 07:00] VITALS: BP 139/80
[2017-06-20 11:00] VITALS: BP 151/97
--- NOTE | 2017-06-20 11:28 | PDOC ---
G I PROGRESS NOTE Subjective Upper abdominal pain better. LQ cramps/"gas"/urge to stool. Denies emesis. Physical Exam Lungs clear. RRR Abdomen soft, mild epigastric and LQ tenderness. Review of Relevant I have reviewed the following items laure (where applicable) has been applied. Labs Laboratory Tests Test 06/18/17 14:53 06/18/17 15:20 06/19/17 04:24 06/20/17 05:05 White Blood Count 10.2 x10^3/uL (4.0-11.0) 12.0 x10^3/uL (4.0-11.0) 11.7 x10^3/uL (4.0-11.0) Red Blood Count 4.40 x10^6/uL (4.30-5.70) 4.21 x10^6/uL (4.30-5.70) 3.94 x10^6/uL (4.30-5.70) Hemoglobin 14.8 g/dL (13.0-17.5) 14.1 g/dL (13.0-17.5) 13.4 g/dL (13.0-17.5) Hematocrit 43.3 % (39.0-53.0) 42.2 % (39.0-53.0) 38.8 % (39.0-53.0) Mean Corpuscular Volume 99 fL (79-100) 100 fL (79-100) 99 fL (79-100) Mean Corpuscular Hemoglobin 34 pg (25-35) 34 pg (25-35) 34 pg (25-35) Mean Corpuscular Hemoglobin Concent 34 g/dL (31-37) 34 g/dL (31-37) 35 g/dL (31-37) Red Cell Distribution Width 13.7 % (11.5-14.5) 13.7 % (11.5-14.5) 13.7 % (11.5-14.5) Platelet Count 248 x10^3/uL (140-400) 226 x10^3/uL (140-400) 212 x10^3/uL (140-400) Neutrophils (%) (Auto) 77 % (31-73) 86 % (31-73) 81 % (31-73) Lymphocytes (%) (Auto) 16 % (24-48) 8 % (24-48) 12 % (24-48) Monocytes (%) (Auto) 5 % (0-9) 5 % (0-9) 5 % (0-9) Eosinophils (%) (Auto) 1 % (0-3) 1 % (0-3) 1 % (0-3) Basophils (%) (Auto) 1 % (0-3) 0 % (0-3) 0 % (0-3) Neutrophils # (Auto) 7.8 x10^3uL (1.8-7.7) 10.3 x10^3uL (1.8-7.7) 9.5 x10^3uL (1.8-7.7) Lymphocytes # (Auto) 1.6 x10^3/uL (1.0-4.8) 0.9 x10^3/uL (1.0-4.8) 1.5 x10^3/uL (1.0-4.8) Monocytes # (Auto) 0.5 x10^3/uL (0.0-1.1) 0.6 x10^3/uL (0.0-1.1) 0.6 x10^3/uL (0.0-1.1) Eosinophils # (Auto) 0.1 x10^3/uL (0.0-0.7) 0.1 x10^3/uL (0.0-0.7) 0.1 x10^3/uL (0.0-0.7) Basophils # (Auto) 0.1 x10^3/uL (0.0-0.2) 0.1 x10^3/uL (0.0-0.2) 0.0 x10^3/uL (0.0-0.2) Prothrombin Time 14.3 SEC (11.7-14.0) Prothromb Time International Ratio 1.2 (0.8-1.1) Activated Partial Thromboplast Time 26 SEC (24-38) Sodium Level 141 mmol/L (136-145) 139 mmol/L (136-145) 136 mmol/L (136-145) Potassium Level 3.8 mmol/L (3.5-5.1) 3.8 mmol/L (3.5-5.1) 3.9 mmol/L (3.5-5.1) Chloride Level 103 mmol/L (98-107) 105 mmol/L (98-107) 101 mmol/L (98-107) Carbon Dioxide Level 24 mmol/L (21-32) 23 mmol/L (21-32) 24 mmol/L (21-32) Anion Gap 14 (6-14) 11 (6-14) 11 (6-14) Blood Urea Nitrogen 9 mg/dL (8-26) 7 mg/dL (8-26) 5 mg/dL (8-26) Creatinine 1.2 mg/dL (0.7-1.3) 1.0 mg/dL (0.7-1.3) 1.0 mg/dL (0.7-1.3) Estimated GFR (Cockcroft-Gault) 80.3 99.2 99.2 BUN/Creatinine Ratio 8 (6-20) 7 (6-20) Glucose Level 104 mg/dL (70-99) 110 mg/dL (70-99) 76 mg/dL (70-99) Calcium Level 9.4 mg/dL (8.5-10.1) 9.0 mg/dL (8.5-10.1) 8.8 mg/dL (8.5-10.1) Magnesium Level 1.9 mg/dL (1.8-2.4) Total Bilirubin 0.9 mg/dL (0.2-1.0) 0.9 mg/dL (0.2-1.0) Aspartate Amino Transf (AST/SGOT) 131 U/L (15-37) 68 U/L (15-37) Alanine Aminotransferase (ALT/SGPT) 101 U/L (16-63) 68 U/L (16-63) Alkaline Phosphatase 100 U/L (46-116) 82 U/L (46-116) Troponin I Quantitative < 0.017 ng/mL (0.000-0.055) Total Protein 7.8 g/dL (6.4-8.2) 7.1 g/dL (6.4-8.2) Albumin 4.0 g/dL (3.4-5.0) 3.3 g/dL (3.4-5.0) Albumin/Globulin Ratio 1.1 (1.0-1.7) 0.9 (1.0-1.7) Lipase 1985 U/L (73-393) 3428 U/L (73-393) 1219 U/L (73-393) Ethyl Alcohol Level < 10 mg/dL (0-10) Urine Opiates Screen Pos (NEG) Urine Methadone Screen Neg (NEG) Urine Barbiturates Neg (NEG) Urine Phencyclidine Screen Neg (NEG) Urine Amphetamine/Methamphetamine Neg (NEG) Urine Benzodiazepines Screen Neg (NEG) Urine Cocaine Screen Pos (NEG) Urine Cannabinoids Screen Pos (NEG) Urine Ethyl Alcohol Neg (NEG) Laboratory Tests Test 06/20/17 05:05 White Blood Count 11.7 x10^3/uL (4.0-11.0) Red Blood Count 3.94 x10^6/uL (4.30-5.70) Hemoglobin 13.4 g/dL (13.0-17.5) Hematocrit 38.8 % (39.0-53.0) Mean Corpuscular Volume 99 fL (79-100) Mean Corpuscular Hemoglobin 34 pg (25-35) Mean Corpuscular Hemoglobin Concent 35 g/dL (31-37) Red Cell Distribution Width 13.7 % (11.5-14.5) Platelet Count 212 x10^3/uL (140-400) Neutrophils (%) (Auto) 81 % (31-73) Lymphocytes (%) (Auto) 12 % (24-48) Monocytes (%) (Auto) 5 % (0-9) Eosinophils (%) (Auto) 1 % (0-3) Basophils (%) (Auto) 0 % (0-3) Neutrophils # (Auto) 9.5 x10^3uL (1.8-7.7) Lymphocytes # (Auto) 1.5 x10^3/uL (1.0-4.8) Monocytes # (Auto) 0.6 x10^3/uL (0.0-1.1) Eosinophils # (Auto) 0.1 x10^3/uL (0.0-0.7) Basophils # (Auto) 0.0 x10^3/uL (0.0-0.2) Sodium Level 136 mmol/L (136-145) Potassium Level 3.9 mmol/L (3.5-5.1) Chloride Level 101 mmol/L (98-107) Carbon Dioxide Level 24 mmol/L (21-32) Anion Gap 11 (6-14) Blood Urea Nitrogen 5 mg/dL (8-26) Creatinine 1.0 mg/dL (0.7-1.3) Estimated GFR (Cockcroft-Gault) 99.2 Glucose Level 76 mg/dL (70-99) Calcium Level 8.8 mg/dL (8.5-10.1) Lipase 1219 U/L (73-393) Lipase falling. Medications Current Medications Sodium Chloride 1,000 ml @ 1,000 mls/hr 1X ONCE IV Last administered on 14:53; Start 06/18/17 at 14:30; Stop 06/18/17 at 15:29; Status DC Ondansetron HCl (Zofran) 8 mg 1X ONCE IV Last administered on 06/18/17 14:57 ; Start 06/18/17 at 14:30; Stop 06/18/17 at 14:38; Status DC Morphine Sulfate 5 mg 1X ONCE IV Last administered on 06/18/17 14:58; Start 06/18/17 at 14:30; Stop 06/18/17 at 14:38; Status DC Iohexol (Omnipaque 300 Mg/ml) 75 ml 1X ONCE IV Last administered on 06/18/17 16:12; Start 06/18/17 at 14:30; Stop 06/18/17 at 14:38; Status DC Multi-Ingredient Mouthwash/Gargle (Gi Cocktail Single Dose) 15 ml 1X ONCE SWSW Last administered on 06/18/17 14:58; Start 06/18/17 at 14:45; Stop 06/18/17 at 14:46; Status DC Fentanyl Citrate (Fentanyl 2ml Vial) 100 mcg 1X ONCE IV Last administered on 16:23; Start 06/18/17 at 16:30; Stop 06/18/17 at 16:31; Status DC Morphine Sulfate 5 mg 1X ONCE IV Last administered on 06/18/17 18:24; Start 06/18/17 at 18:00; Stop 06/18/17 at 18:01; Status DC Ondansetron HCl (Zofran) 4 mg PRN Q8HRS PRN IV NAUSEA/VOMITING; Start 06/18/17 at 18:00; Stop 06/19/17 at 17:59; Status DC Fentanyl Citrate (Fentanyl 2ml Vial) 50 mcg PRN Q1HR PRN IV PAIN Last administered on 06/18/17 20:51; Start 06/18/17 at 18:00; Stop 06/18/17 at 21:58 ; Status DC Sodium Chloride 1,000 ml @ 200 mls/hr Q5H IV Last administered on 06/19/17 16 :12; Start 06/18/17 at 17:52; Stop 06/19/17 at 17:51; Status DC Fentanyl Citrate (Fentanyl 2ml Vial) 100 mcg PRN Q1HR PRN IV PAIN Last administered on 06/19/17 00:36; Start 06/18/17 at 22:00; Stop 06/19/17 at 02:36 ; Status DC Fentanyl Citrate (Fentanyl 2ml Vial) 100 mcg PRN Q2HRS PRN IV PAIN Last administered on 06/20/17 08:02; Start 06/19/17 at 02:45 Sodium Chloride 1,000 ml @ 200 mls/hr Q5H IV Last administered on 06/20/17 07 :15; Start 06/19/17 at 21:15 Active Scripts Active Reported No Known Medications Prior To Admisstion (Info) Each 1 Each Vitals/I & O Vital Sign - Last 24 Hours 06/19/17 06/19/17 06/19/17 06/19/17 14:09 14:45 16:20 16:50 Temp 97.5 97.5 Pulse 70 Resp 20 18 20 20 B/P (MAP) 153/96 (115) Pulse Ox 98 98 98 98 O2 Delivery Room Air Room Air 06/19/17 06/19/17 06/19/17 06/19/17 18:41 19:00 20:00 21:14 Temp 98.1 98.1 Pulse 58 Resp 20 17 18 B/P (MAP) 166/97 (120) Pulse Ox 98 99 O2 Delivery Room Air Room Air Room Air 06/19/17 06/20/17 06/20/17 06/20/17 23:02 02:04 03:00 07:00 Temp 99.3 98.9 97.7 99.3 98.9 97.7 Pulse 57 64 60 Resp 18 20 17 18 B/P (MAP) 138/39 (72) 132/88 (103) 139/80 (99) Pulse Ox 100 99 100 O2 Delivery Room Air Room Air Room Air Room Air 06/20/17 06/20/17 06/20/17 06/20/17 08:00 08:02 08:37 11:00 Temp 97.7 97.7 Pulse 83 Resp 18 B/P (MAP) 151/97 (115) Pulse Ox 99 O2 Delivery Room Air Room Air Room Air Room Air Problem List Problems Medical Problems: (1) Alcohol abuse Status: Acute (2) Drug abuse Status: Acute (3) Transaminitis Status: Acute Assessment Alcoholic pancreatitis, clinically improving. "Constipation", narcotic-induced? Plan of Care: Continue current Tx, Mgmt Plan of Care Note Try clears. MOM. ISMAEL SANTACRUZ MD Jun 20, 2017 11:28
[2017-06-20] MEDS ORDERED: MAGNESIUM HYDROXIDE 2,400 MG/30 ML ORAL.SUSP. PO ONE (11:30)
--- NOTE | 2017-06-20 14:04 | PDOC ---
PROGRESS NOTES Chief Complaint Chief Complaint Abdominal pain Acute pancreatitis PMH: Alcoholism History of Present Illness History of Present Illness Pt laying in bed. c/o abdominal pain- thinks it is gas. Denied bm Vitals Vitals Vital Signs Date Time Temp Pulse Resp B/P (MAP) Pulse Ox O2 Delivery O2 Flow Rate FiO2 06/20/17 11:00 97.7 83 18 151/97 (115) 99 Room Air 97.7 Physical Exam General: Alert, Oriented X3, Cooperative Heart: Regular rate, No murmurs Lungs: Clear, Other (no acute distress noted) Abdomen: Normal bowel sounds, Soft Extremities: No clubbing, No cyanosis Skin: No rashes, No breakdown Labs LABS Laboratory Tests Test 06/20/17 05:05 White Blood Count 11.7 x10^3/uL (4.0-11.0) Red Blood Count 3.94 x10^6/uL (4.30-5.70) Hemoglobin 13.4 g/dL (13.0-17.5) Hematocrit 38.8 % (39.0-53.0) Mean Corpuscular Volume 99 fL (79-100) Mean Corpuscular Hemoglobin 34 pg (25-35) Mean Corpuscular Hemoglobin Concent 35 g/dL (31-37) Red Cell Distribution Width 13.7 % (11.5-14.5) Platelet Count 212 x10^3/uL (140-400) Neutrophils (%) (Auto) 81 % (31-73) Lymphocytes (%) (Auto) 12 % (24-48) Monocytes (%) (Auto) 5 % (0-9) Eosinophils (%) (Auto) 1 % (0-3) Basophils (%) (Auto) 0 % (0-3) Neutrophils # (Auto) 9.5 x10^3uL (1.8-7.7) Lymphocytes # (Auto) 1.5 x10^3/uL (1.0-4.8) Monocytes # (Auto) 0.6 x10^3/uL (0.0-1.1) Eosinophils # (Auto) 0.1 x10^3/uL (0.0-0.7) Basophils # (Auto) 0.0 x10^3/uL (0.0-0.2) Sodium Level 136 mmol/L (136-145) Potassium Level 3.9 mmol/L (3.5-5.1) Chloride Level 101 mmol/L (98-107) Carbon Dioxide Level 24 mmol/L (21-32) Anion Gap 11 (6-14) Blood Urea Nitrogen 5 mg/dL (8-26) Creatinine 1.0 mg/dL (0.7-1.3) Estimated GFR (Cockcroft-Gault) 99.2 Glucose Level 76 mg/dL (70-99) Calcium Level 8.8 mg/dL (8.5-10.1) Lipase 1219 U/L (73-393) Review of Systems Review of Systems c/o abdominal pain- pt thinks it is gas. No bm today c/o fatigue Assessment and Plan Assessmemt and Plan Pancreatitis w/ phlegmon Leukocytosis Substance abuse Mild malnutrition - albumin 3.3 1. GI consulted: lipase improving (1219 today). Continue to monitor levels. npo - ice chips. Adjust diet when ok w/ GI 2. CIWA 3. Recheck CBC and BMP in am 4. PT/OT Possible d/c today if ok w/ GI Problems: Comment Review of Relevant I have reviewed the following items laure (where applicable) has been applied. Labs Laboratory Tests Test 06/18/17 14:53 06/18/17 15:20 06/19/17 04:24 06/20/17 05:05 White Blood Count 10.2 x10^3/uL (4.0-11.0) 12.0 x10^3/uL (4.0-11.0) 11.7 x10^3/uL (4.0-11.0) Red Blood Count 4.40 x10^6/uL (4.30-5.70) 4.21 x10^6/uL (4.30-5.70) 3.94 x10^6/uL (4.30-5.70) Hemoglobin 14.8 g/dL (13.0-17.5) 14.1 g/dL (13.0-17.5) 13.4 g/dL (13.0-17.5) Hematocrit 43.3 % (39.0-53.0) 42.2 % (39.0-53.0) 38.8 % (39.0-53.0) Mean Corpuscular Volume 99 fL (79-100) 100 fL (79-100) 99 fL (79-100) Mean Corpuscular Hemoglobin 34 pg (25-35) 34 pg (25-35) 34 pg (25-35) Mean Corpuscular Hemoglobin Concent 34 g/dL (31-37) 34 g/dL (31-37) 35 g/dL (31-37) Red Cell Distribution Width 13.7 % (11.5-14.5) 13.7 % (11.5-14.5) 13.7 % (11.5-14.5) Platelet Count 248 x10^3/uL (140-400) 226 x10^3/uL (140-400) 212 x10^3/uL (140-400) Neutrophils (%) (Auto) 77 % (31-73) 86 % (31-73) 81 % (31-73) Lymphocytes (%) (Auto) 16 % (24-48) 8 % (24-48) 12 % (24-48) Monocytes (%) (Auto) 5 % (0-9) 5 % (0-9) 5 % (0-9) Eosinophils (%) (Auto) 1 % (0-3) 1 % (0-3) 1 % (0-3) Basophils (%) (Auto) 1 % (0-3) 0 % (0-3) 0 % (0-3) Neutrophils # (Auto) 7.8 x10^3uL (1.8-7.7) 10.3 x10^3uL (1.8-7.7) 9.5 x10^3uL (1.8-7.7) Lymphocytes # (Auto) 1.6 x10^3/uL (1.0-4.8) 0.9 x10^3/uL (1.0-4.8) 1.5 x10^3/uL (1.0-4.8) Monocytes # (Auto) 0.5 x10^3/uL (0.0-1.1) 0.6 x10^3/uL (0.0-1.1) 0.6 x10^3/uL (0.0-1.1) Eosinophils # (Auto) 0.1 x10^3/uL (0.0-0.7) 0.1 x10^3/uL (0.0-0.7) 0.1 x10^3/uL (0.0-0.7) Basophils # (Auto) 0.1 x10^3/uL (0.0-0.2) 0.1 x10^3/uL (0.0-0.2) 0.0 x10^3/uL (0.0-0.2) Prothrombin Time 14.3 SEC (11.7-14.0) Prothromb Time International Ratio 1.2 (0.8-1.1) Activated Partial Thromboplast Time 26 SEC (24-38) Sodium Level 141 mmol/L (136-145) 139 mmol/L (136-145) 136 mmol/L (136-145) Potassium Level 3.8 mmol/L (3.5-5.1) 3.8 mmol/L (3.5-5.1) 3.9 mmol/L (3.5-5.1) Chloride Level 103 mmol/L (98-107) 105 mmol/L (98-107) 101 mmol/L (98-107) Carbon Dioxide Level 24 mmol/L (21-32) 23 mmol/L (21-32) 24 mmol/L (21-32) Anion Gap 14 (6-14) 11 (6-14) 11 (6-14) Blood Urea Nitrogen 9 mg/dL (8-26) 7 mg/dL (8-26) 5 mg/dL (8-26) Creatinine 1.2 mg/dL (0.7-1.3) 1.0 mg/dL (0.7-1.3) 1.0 mg/dL (0.7-1.3) Estimated GFR (Cockcroft-Gault) 80.3 99.2 99.2 BUN/Creatinine Ratio 8 (6-20) 7 (6-20) Glucose Level 104 mg/dL (70-99) 110 mg/dL (70-99) 76 mg/dL (70-99) Calcium Level 9.4 mg/dL (8.5-10.1) 9.0 mg/dL (8.5-10.1) 8.8 mg/dL (8.5-10.1) Magnesium Level 1.9 mg/dL (1.8-2.4) Total Bilirubin 0.9 mg/dL (0.2-1.0) 0.9 mg/dL (0.2-1.0) Aspartate Amino Transf (AST/SGOT) 131 U/L (15-37) 68 U/L (15-37) Alanine Aminotransferase (ALT/SGPT) 101 U/L (16-63) 68 U/L (16-63) Alkaline Phosphatase 100 U/L (46-116) 82 U/L (46-116) Troponin I Quantitative < 0.017 ng/mL (0.000-0.055) Total Protein 7.8 g/dL (6.4-8.2) 7.1 g/dL (6.4-8.2) Albumin 4.0 g/dL (3.4-5.0) 3.3 g/dL (3.4-5.0) Albumin/Globulin Ratio 1.1 (1.0-1.7) 0.9 (1.0-1.7) Lipase 1985 U/L (73-393) 3428 U/L (73-393) 1219 U/L (73-393) Ethyl Alcohol Level < 10 mg/dL (0-10) Urine Opiates Screen Pos (NEG) Urine Methadone Screen Neg (NEG) Urine Barbiturates Neg (NEG) Urine Phencyclidine Screen Neg (NEG) Urine Amphetamine/Methamphetamine Neg (NEG) Urine Benzodiazepines Screen Neg (NEG) Urine Cocaine Screen Pos (NEG) Urine Cannabinoids Screen Pos (NEG) Urine Ethyl Alcohol Neg (NEG) Laboratory Tests Test 06/20/17 05:05 White Blood Count 11.7 x10^3/uL (4.0-11.0) Red Blood Count 3.94 x10^6/uL (4.30-5.70) Hemoglobin 13.4 g/dL (13.0-17.5) Hematocrit 38.8 % (39.0-53.0) Mean Corpuscular Volume 99 fL (79-100) Mean Corpuscular Hemoglobin 34 pg (25-35) Mean Corpuscular Hemoglobin Concent 35 g/dL (31-37) Red Cell Distribution Width 13.7 % (11.5-14.5) Platelet Count 212 x10^3/uL (140-400) Neutrophils (%) (Auto) 81 % (31-73) Lymphocytes (%) (Auto) 12 % (24-48) Monocytes (%) (Auto) 5 % (0-9) Eosinophils (%) (Auto) 1 % (0-3) Basophils (%) (Auto) 0 % (0-3) Neutrophils # (Auto) 9.5 x10^3uL (1.8-7.7) Lymphocytes # (Auto) 1.5 x10^3/uL (1.0-4.8) Monocytes # (Auto) 0.6 x10^3/uL (0.0-1.1) Eosinophils # (Auto) 0.1 x10^3/uL (0.0-0.7) Basophils # (Auto) 0.0 x10^3/uL (0.0-0.2) Sodium Level 136 mmol/L (136-145) Potassium Level 3.9 mmol/L (3.5-5.1) Chloride Level 101 mmol/L (98-107) Carbon Dioxide Level 24 mmol/L (21-32) Anion Gap 11 (6-14) Blood Urea Nitrogen 5 mg/dL (8-26) Creatinine 1.0 mg/dL (0.7-1.3) Estimated GFR (Cockcroft-Gault) 99.2 Glucose Level 76 mg/dL (70-99) Calcium Level 8.8 mg/dL (8.5-10.1) Lipase 1219 U/L (73-393) Medications Current Medications Sodium Chloride 1,000 ml @ 1,000 mls/hr 1X ONCE IV Last administered on 14:53; Start 06/18/17 at 14:30; Stop 06/18/17 at 15:29; Status DC Ondansetron HCl (Zofran) 8 mg 1X ONCE IV Last administered on 06/18/17 14:57 ; Start 06/18/17 at 14:30; Stop 06/18/17 at 14:38; Status DC Morphine Sulfate 5 mg 1X ONCE IV Last administered on 06/18/17 14:58; Start 06/18/17 at 14:30; Stop 06/18/17 at 14:38; Status DC Iohexol (Omnipaque 300 Mg/ml) 75 ml 1X ONCE IV Last administered on 06/18/17 16:12; Start 06/18/17 at 14:30; Stop 06/18/17 at 14:38; Status DC Multi-Ingredient Mouthwash/Gargle (Gi Cocktail Single Dose) 15 ml 1X ONCE SWSW Last administered on 06/18/17 14:58; Start 06/18/17 at 14:45; Stop 06/18/17 at 14:46; Status DC Fentanyl Citrate (Fentanyl 2ml Vial) 100 mcg 1X ONCE IV Last administered on 16:23; Start 06/18/17 at 16:30; Stop 06/18/17 at 16:31; Status DC Morphine Sulfate 5 mg 1X ONCE IV Last administered on 06/18/17 18:24; Start 06/18/17 at 18:00; Stop 06/18/17 at 18:01; Status DC Ondansetron HCl (Zofran) 4 mg PRN Q8HRS PRN IV NAUSEA/VOMITING; Start 06/18/17 at 18:00; Stop 06/19/17 at 17:59; Status DC Fentanyl Citrate (Fentanyl 2ml Vial) 50 mcg PRN Q1HR PRN IV PAIN Last administered on 06/18/17 20:51; Start 06/18/17 at 18:00; Stop 06/18/17 at 21:58 ; Status DC Sodium Chloride 1,000 ml @ 200 mls/hr Q5H IV Last administered on 06/19/17 16 :12; Start 06/18/17 at 17:52; Stop 06/19/17 at 17:51; Status DC Fentanyl Citrate (Fentanyl 2ml Vial) 100 mcg PRN Q1HR PRN IV PAIN Last administered on 06/19/17 00:36; Start 06/18/17 at 22:00; Stop 06/19/17 at 02:36 ; Status DC Fentanyl Citrate (Fentanyl 2ml Vial) 100 mcg PRN Q2HRS PRN IV PAIN Last administered on 06/20/17 08:02; Start 06/19/17 at 02:45 Sodium Chloride 1,000 ml @ 200 mls/hr Q5H IV Last administered on 06/20/17 12 :27; Start 06/19/17 at 21:15 Magnesium Hydroxide (Milk Of Magnesia) 2,400 mg 1X ONCE PO Last administered on 06/20/17 12:28; Start 06/20/17 at 11:30; Stop 06/20/17 at 11:31; Status DC Active Scripts Active Reported No Known Medications Prior To Admisstion (Info) Each 1 Each Vitals/I & O Vital Sign - Last 24 Hours 06/19/17 06/19/17 06/19/17 06/19/17 14:09 14:45 16:20 16:50 Temp 97.5 97.5 Pulse 70 Resp 20 18 20 20 B/P (MAP) 153/96 (115) Pulse Ox 98 98 98 98 O2 Delivery Room Air Room Air 06/19/17 06/19/17 06/19/17 06/19/17 18:41 19:00 20:00 21:14 Temp 98.1 98.1 Pulse 58 Resp 20 17 18 B/P (MAP) 166/97 (120) Pulse Ox 98 99 O2 Delivery Room Air Room Air Room Air 06/19/17 06/20/17 06/20/17 06/20/17 23:02 02:04 03:00 07:00 Temp 99.3 98.9 97.7 99.3 98.9 97.7 Pulse 57 64 60 Resp 18 20 17 18 B/P (MAP) 138/39 (72) 132/88 (103) 139/80 (99) Pulse Ox 100 99 100 O2 Delivery Room Air Room Air Room Air Room Air 06/20/17 06/20/17 06/20/17 06/20/17 08:00 08:02 08:37 11:00 Temp 97.7 97.7 Pulse 83 Resp 18 B/P (MAP) 151/97 (115) Pulse Ox 99 O2 Delivery Room Air Room Air Room Air Room Air LUISA RESTREPO III DO Jun 20, 2017 14:04
[2017-06-20 15:00] VITALS: BP 138/87
[2017-06-20] MEDS ORDERED: BISACODYL 10 MG SUPP.RECT. PR ONE (15:15)
[2017-06-20 19:28] VITALS: BP 155/102
[2017-06-20 22:59] VITALS: BP 159/94
[2017-06-21 02:58] VITALS: BP 144/83
[2017-06-21] MEDS: IV NORMAL SALINE 1000ML BAG 1,000 ML IV SCH ×2 (03:20→08:15)
[2017-06-21 07:00] VITALS: BP 138/89
[2017-06-21 08:45] LABS: BASO % 0 % (0-3); EOS % 3 % (0-3); HEMATOCRIT 39.6 % (39.0-53.0); HEMOGLOBIN 13.7 g/dL (13.0-17.5); LYMPH # 1.4 x10^3/uL (1.0-4.8); LYMPH % 16 % (24-48); MEAN CORPUSCULAR HEMOGLOBIN 34 pg (25-35); MEAN CORPUSCULAR HGB CONC 35 g/dL (31-37); MEAN CORPUSCULAR VOLUME 98 fL (79-100); MONO % 6 % (0-9); NEUT % 74 % (31-73); PLATELET COUNT 219 x10^3/uL (140-400); RED BLOOD COUNT 4.05 x10^6/uL (4.30-5.70); RED CELL DISTRIBUTION WIDTH 13.7 % (11.5-14.5); WHITE BLOOD COUNT 8.8 x10^3/uL (4.0-11.0)
[2017-06-21 09:06] LABS: CALCIUM 8.6 mg/dL (8.5-10.1); CREATININE 0.9 mg/dL (0.7-1.3); POTASSIUM 3.6 mmol/L (3.5-5.1)
--- NOTE | 2017-06-21 09:08 | RAD ---
Indication pain. Constipation. A single KUB was obtained. Note is made of a CT examination of the abdomen and pelvis 2 days previously. The abdominal gas pattern is normal. No organomegaly or abnormal calculi are seen. There does not appear to be an inordinate amount of stool in the large bowel. IMPRESSION: No acute or significant finding seen on KUB
[2017-06-21 11:00] VITALS: BP 143/99
--- NOTE | 2017-06-21 12:05 | PDOC ---
Subjective: Subjective: No upper abd pain or n/v. Wants to eat and leave. Had lower abd "gas" pain yesterday - resolved this a.m. w/ stooling. Says he's not going to drink anymore. Objective: Objective: D/w RN earlier - refused more IVF 2/2 frequent urination, anxious to leave, no pain, has DC orders. Vital Signs: Vital Signs Date Time Temp Pulse Resp B/P (MAP) Pulse Ox O2 Delivery O2 Flow Rate FiO2 06/21/17 11:00 97.9 69 20 143/99 (114) 99 Room Air 97.9 Labs: Laboratory Tests Test 06/21/17 08:05 White Blood Count 8.8 x10^3/uL Red Blood Count 4.05 x10^6/uL Hemoglobin 13.7 g/dL Hematocrit 39.6 % Mean Corpuscular Volume 98 fL Mean Corpuscular Hemoglobin 34 pg Mean Corpuscular Hemoglobin Concent 35 g/dL Red Cell Distribution Width 13.7 % Platelet Count 219 x10^3/uL Neutrophils (%) (Auto) 74 % Lymphocytes (%) (Auto) 16 % Monocytes (%) (Auto) 6 % Eosinophils (%) (Auto) 3 % Basophils (%) (Auto) 0 % Neutrophils # (Auto) 6.6 x10^3uL Lymphocytes # (Auto) 1.4 x10^3/uL Monocytes # (Auto) 0.5 x10^3/uL Eosinophils # (Auto) 0.3 x10^3/uL Basophils # (Auto) 0.0 x10^3/uL Sodium Level 136 mmol/L Potassium Level 3.6 mmol/L Chloride Level 102 mmol/L Carbon Dioxide Level 24 mmol/L Anion Gap 10 Blood Urea Nitrogen 7 mg/dL Creatinine 0.9 mg/dL Estimated GFR (Cockcroft-Gault) 112.0 Glucose Level 76 mg/dL Calcium Level 8.6 mg/dL Lipase 565 U/L Imaging: KUB 06/20/17 IMPRESSION: No acute or significant finding seen on KUB. PE: GEN: NAD, looks well LUNGS: CTAB HEART: RRR ABD: BS+, non-tender, soft NEURO/PSYCH: A & O 3 A/P: Pancreatitis w/ phlegmon, likely alcohol-induced -lipase trending down (565 today) Abd pain, n/v, constipation - resolved Leukocytosis - resolved -- ADAT, DC if tolerates. TEVIN DUNCAN Jun 21, 2017 12:05
--- NOTE | 2017-06-21 13:18 | PDOC ---
PROGRESS NOTES Chief Complaint Chief Complaint Abdominal pain Acute pancreatitis PMH: Alcoholism History of Present Illness History of Present Illness Pt sitting on side of bed, reports he is feeling much better and is requesting DC today. Lipase today 565, was 3428 KUB: IMPRESSION: No acute or significant finding seen on KUB Vitals Vitals Vital Signs Date Time Temp Pulse Resp B/P (MAP) Pulse Ox O2 Delivery O2 Flow Rate FiO2 06/21/17 11:00 97.9 69 20 143/99 (114) 99 Room Air 97.9 Physical Exam General: Alert, Oriented X3, Cooperative Heart: Regular rate, No murmurs Lungs: Clear, Other (no acute distress noted) Abdomen: Normal bowel sounds, Soft Extremities: No clubbing, No cyanosis Skin: No rashes, No breakdown Labs LABS Laboratory Tests Test 06/21/17 08:05 White Blood Count 8.8 x10^3/uL (4.0-11.0) Red Blood Count 4.05 x10^6/uL (4.30-5.70) Hemoglobin 13.7 g/dL (13.0-17.5) Hematocrit 39.6 % (39.0-53.0) Mean Corpuscular Volume 98 fL (79-100) Mean Corpuscular Hemoglobin 34 pg (25-35) Mean Corpuscular Hemoglobin Concent 35 g/dL (31-37) Red Cell Distribution Width 13.7 % (11.5-14.5) Platelet Count 219 x10^3/uL (140-400) Neutrophils (%) (Auto) 74 % (31-73) Lymphocytes (%) (Auto) 16 % (24-48) Monocytes (%) (Auto) 6 % (0-9) Eosinophils (%) (Auto) 3 % (0-3) Basophils (%) (Auto) 0 % (0-3) Neutrophils # (Auto) 6.6 x10^3uL (1.8-7.7) Lymphocytes # (Auto) 1.4 x10^3/uL (1.0-4.8) Monocytes # (Auto) 0.5 x10^3/uL (0.0-1.1) Eosinophils # (Auto) 0.3 x10^3/uL (0.0-0.7) Basophils # (Auto) 0.0 x10^3/uL (0.0-0.2) Sodium Level 136 mmol/L (136-145) Potassium Level 3.6 mmol/L (3.5-5.1) Chloride Level 102 mmol/L (98-107) Carbon Dioxide Level 24 mmol/L (21-32) Anion Gap 10 (6-14) Blood Urea Nitrogen 7 mg/dL (8-26) Creatinine 0.9 mg/dL (0.7-1.3) Estimated GFR (Cockcroft-Gault) 112.0 Glucose Level 76 mg/dL (70-99) Calcium Level 8.6 mg/dL (8.5-10.1) Lipase 565 U/L (73-393) Review of Systems Review of Systems pain resolved afebrile Assessment and Plan Assessmemt and Plan Problems Medical Problems: (1) Alcohol abuse Status: Acute (2) Drug abuse Status: Acute (3) Transaminitis Status: Acute Pancreatitis w/ phlegmon - lipase 565 today Leukocytosis - resolved Substance abuse Mild malnutrition - albumin 3.3 1. Continue home meds 2. Continue to ADAT 3. Discharge to home 4. F/up PCP 1 week 5. Notify consultants of dc Problems: Comment Review of Relevant I have reviewed the following items laure (where applicable) has been applied. Labs Laboratory Tests Test 06/20/17 05:05 06/21/17 08:05 White Blood Count 11.7 x10^3/uL (4.0-11.0) 8.8 x10^3/uL (4.0-11.0) Red Blood Count 3.94 x10^6/uL (4.30-5.70) 4.05 x10^6/uL (4.30-5.70) Hemoglobin 13.4 g/dL (13.0-17.5) 13.7 g/dL (13.0-17.5) Hematocrit 38.8 % (39.0-53.0) 39.6 % (39.0-53.0) Mean Corpuscular Volume 99 fL (79-100) 98 fL (79-100) Mean Corpuscular Hemoglobin 34 pg (25-35) 34 pg (25-35) Mean Corpuscular Hemoglobin Concent 35 g/dL (31-37) 35 g/dL (31-37) Red Cell Distribution Width 13.7 % (11.5-14.5) 13.7 % (11.5-14.5) Platelet Count 212 x10^3/uL (140-400) 219 x10^3/uL (140-400) Neutrophils (%) (Auto) 81 % (31-73) 74 % (31-73) Lymphocytes (%) (Auto) 12 % (24-48) 16 % (24-48) Monocytes (%) (Auto) 5 % (0-9) 6 % (0-9) Eosinophils (%) (Auto) 1 % (0-3) 3 % (0-3) Basophils (%) (Auto) 0 % (0-3) 0 % (0-3) Neutrophils # (Auto) 9.5 x10^3uL (1.8-7.7) 6.6 x10^3uL (1.8-7.7) Lymphocytes # (Auto) 1.5 x10^3/uL (1.0-4.8) 1.4 x10^3/uL (1.0-4.8) Monocytes # (Auto) 0.6 x10^3/uL (0.0-1.1) 0.5 x10^3/uL (0.0-1.1) Eosinophils # (Auto) 0.1 x10^3/uL (0.0-0.7) 0.3 x10^3/uL (0.0-0.7) Basophils # (Auto) 0.0 x10^3/uL (0.0-0.2) 0.0 x10^3/uL (0.0-0.2) Sodium Level 136 mmol/L (136-145) 136 mmol/L (136-145) Potassium Level 3.9 mmol/L (3.5-5.1) 3.6 mmol/L (3.5-5.1) Chloride Level 101 mmol/L (98-107) 102 mmol/L (98-107) Carbon Dioxide Level 24 mmol/L (21-32) 24 mmol/L (21-32) Anion Gap 11 (6-14) 10 (6-14) Blood Urea Nitrogen 5 mg/dL (8-26) 7 mg/dL (8-26) Creatinine 1.0 mg/dL (0.7-1.3) 0.9 mg/dL (0.7-1.3) Estimated GFR (Cockcroft-Gault) 99.2 112.0 Glucose Level 76 mg/dL (70-99) 76 mg/dL (70-99) Calcium Level 8.8 mg/dL (8.5-10.1) 8.6 mg/dL (8.5-10.1) Lipase 1219 U/L (73-393) 565 U/L (73-393) Laboratory Tests Test 06/21/17 08:05 White Blood Count 8.8 x10^3/uL (4.0-11.0) Red Blood Count 4.05 x10^6/uL (4.30-5.70) Hemoglobin 13.7 g/dL (13.0-17.5) Hematocrit 39.6 % (39.0-53.0) Mean Corpuscular Volume 98 fL (79-100) Mean Corpuscular Hemoglobin 34 pg (25-35) Mean Corpuscular Hemoglobin Concent 35 g/dL (31-37) Red Cell Distribution Width 13.7 % (11.5-14.5) Platelet Count 219 x10^3/uL (140-400) Neutrophils (%) (Auto) 74 % (31-73) Lymphocytes (%) (Auto) 16 % (24-48) Monocytes (%) (Auto) 6 % (0-9) Eosinophils (%) (Auto) 3 % (0-3) Basophils (%) (Auto) 0 % (0-3) Neutrophils # (Auto) 6.6 x10^3uL (1.8-7.7) Lymphocytes # (Auto) 1.4 x10^3/uL (1.0-4.8) Monocytes # (Auto) 0.5 x10^3/uL (0.0-1.1) Eosinophils # (Auto) 0.3 x10^3/uL (0.0-0.7) Basophils # (Auto) 0.0 x10^3/uL (0.0-0.2) Sodium Level 136 mmol/L (136-145) Potassium Level 3.6 mmol/L (3.5-5.1) Chloride Level 102 mmol/L (98-107) Carbon Dioxide Level 24 mmol/L (21-32) Anion Gap 10 (6-14) Blood Urea Nitrogen 7 mg/dL (8-26) Creatinine 0.9 mg/dL (0.7-1.3) Estimated GFR (Cockcroft-Gault) 112.0 Glucose Level 76 mg/dL (70-99) Calcium Level 8.6 mg/dL (8.5-10.1) Lipase 565 U/L (73-393) Medications Current Medications Sodium Chloride 1,000 ml @ 1,000 mls/hr 1X ONCE IV Last administered on 14:53; Start 06/18/17 at 14:30; Stop 06/18/17 at 15:29; Status DC Ondansetron HCl (Zofran) 8 mg 1X ONCE IV Last administered on 06/18/17 14:57 ; Start 06/18/17 at 14:30; Stop 06/18/17 at 14:38; Status DC Morphine Sulfate 5 mg 1X ONCE IV Last administered on 06/18/17 14:58; Start 06/18/17 at 14:30; Stop 06/18/17 at 14:38; Status DC Iohexol (Omnipaque 300 Mg/ml) 75 ml 1X ONCE IV Last administered on 06/18/17 16:12; Start 06/18/17 at 14:30; Stop 06/18/17 at 14:38; Status DC Multi-Ingredient Mouthwash/Gargle (Gi Cocktail Single Dose) 15 ml 1X ONCE SWSW Last administered on 06/18/17 14:58; Start 06/18/17 at 14:45; Stop 06/18/17 at 14:46; Status DC Fentanyl Citrate (Fentanyl 2ml Vial) 100 mcg 1X ONCE IV Last administered on 16:23; Start 06/18/17 at 16:30; Stop 06/18/17 at 16:31; Status DC Morphine Sulfate 5 mg 1X ONCE IV Last administered on 06/18/17 18:24; Start 06/18/17 at 18:00; Stop 06/18/17 at 18:01; Status DC Ondansetron HCl (Zofran) 4 mg PRN Q8HRS PRN IV NAUSEA/VOMITING; Start 06/18/17 at 18:00; Stop 06/19/17 at 17:59; Status DC Fentanyl Citrate (Fentanyl 2ml Vial) 50 mcg PRN Q1HR PRN IV PAIN Last administered on 06/18/17 20:51; Start 06/18/17 at 18:00; Stop 06/18/17 at 21:58 ; Status DC Sodium Chloride 1,000 ml @ 200 mls/hr Q5H IV Last administered on 06/19/17 16 :12; Start 06/18/17 at 17:52; Stop 06/19/17 at 17:51; Status DC Fentanyl Citrate (Fentanyl 2ml Vial) 100 mcg PRN Q1HR PRN IV PAIN Last administered on 06/19/17 00:36; Start 06/18/17 at 22:00; Stop 06/19/17 at 02:36 ; Status DC Fentanyl Citrate (Fentanyl 2ml Vial) 100 mcg PRN Q2HRS PRN IV PAIN Last administered on 06/20/17 20:35; Start 06/19/17 at 02:45 Sodium Chloride 1,000 ml @ 200 mls/hr Q5H IV Last administered on 06/21/17 03 :20; Start 06/19/17 at 21:15 Magnesium Hydroxide (Milk Of Magnesia) 2,400 mg 1X ONCE PO Last administered on 06/20/17 12:28; Start 06/20/17 at 11:30; Stop 06/20/17 at 11:31; Status DC Bisacodyl (Dulcolax Supp) 10 mg 1X ONCE DE Last administered on 06/20/17 16: 00; Start 06/20/17 at 15:15; Stop 06/20/17 at 15:16; Status DC Active Scripts Active Reported No Known Medications Prior To Admisstion (Info) Each 1 Each Vitals/I & O Vital Sign - Last 24 Hours 06/20/17 06/20/17 06/20/17 06/20/17 15:00 19:28 20:23 20:35 Temp 97.7 98.8 97.7 98.8 Pulse 65 65 Resp 18 16 18 B/P (MAP) 138/87 (104) 155/102 (119) Pulse Ox 99 99 99 O2 Delivery Room Air Room Air Room Air Room Air 06/20/17 06/20/17 06/21/17 06/21/17 21:19 22:59 02:58 07:00 Temp 98.1 98.1 97.9 98.1 98.1 97.9 Pulse 72 65 66 Resp 18 16 16 18 B/P (MAP) 159/94 (115) 144/83 (103) 138/89 (105) Pulse Ox 99 97 98 99 O2 Delivery Room Air Room Air Room Air Room Air 06/21/17 06/21/17 08:00 11:00 Temp 97.9 97.9 Pulse 69 Resp 20 B/P (MAP) 143/99 (114) Pulse Ox 99 O2 Delivery Room Air Room Air Intake and Output 06/21/17 06/21/17 06/22/17 15:00 23:00 07:00 Intake Total 600 ml Balance 600 ml LUISA RESTREPO III DO Jun 21, 2017 13:18
== END 2017-06-21 13:25 | disposition home or self-care (01) | DRG 439 ==
LOC: ER 14:24 → 5 SOUTH 17:41 → 5 NORTH 18:57
PROVIDERS: ADMIT Internal Medicine; ATTEND Internal Medicine
DX: K85.20 Alcohol induced acute pancreatitis without necrosis or infection (principal); E44.1 Mild protein-calorie malnutrition; K76.0 Fatty (change of) liver, not elsewhere classified; F14.10 Cocaine abuse, uncomplicated; F12.10 Cannabis abuse, uncomplicated; F10.20 Alcohol dependence, uncomplicated; F17.210 Nicotine dependence, cigarettes, uncomplicated; Y90.0 Blood alcohol level of less than 20 mg/100 ml; R74.0 Nonspecific elevation of levels of transaminase and lactic acid dehydrogenase [LDH]; Z88.5 Allergy status to narcotic agent; Z68.30 Body mass index [BMI] 30.0-30.9, adult; Z83.3 Family history of diabetes mellitus
CPT/HCPCS: 36415; 74000; 74177; 76705; 80048; 80053; 80307; 83690; 83735; 84484; 85025; 85610; 85730; 93005; 96361; 96374; 96375; 96376; G0480; J2270; J2405; J3010; J7030; Q9967; 99285-25; G0479